=== PATIENT | female | born 1975 | race Caucasian/White ===

== ENCOUNTER 2021-04-30 18:47 | Emergency (ER) | payer SELFPAY ==
[~2021-04-30] VITALS: Ht 170.2 cm; Wt 68.0 kg
[2021-04-30] MEDS ORDERED: DIPHENHYDRAMINE HCL INJ 50 MG/ML VIAL ONE (20:14)
[2021-04-30] MEDS ORDERED: SODIUM CHLORIDE 0.9% 500ML 500 ML ONE (20:14)
[2021-04-30] MEDS ORDERED: DEXAMETHASONE SOD PHOS INJ 4 MG/ML VIAL ONE (20:14)
[2021-04-30] MEDS ORDERED: METOCLOPRAMIDE HCL 10 MG/2ML VIAL ONE (20:14)
[2021-04-30] MEDS ORDERED: DIPHENHYDRAMINE HCL INJ 50 MG/ML VIAL IV ONE (20:15)
[2021-04-30] MEDS ORDERED: METOCLOPRAMIDE HCL 10 MG/2ML VIAL IV ONE (20:15)
[2021-04-30] MEDS ORDERED: DEXAMETHASONE SOD PHOS 10 MG/1 ML VIAL IV ONE (20:15)
[2021-04-30] MEDS ORDERED: SODIUM CHLORIDE 0.9% 1000ML 1,000 ML IV SCH (20:15)
[2021-04-30] MEDS ORDERED: FIORICET 50-301 EACH PO (22:18)
[2021-04-30] MEDS ORDERED: ONDANSETRON ODT4 MG PO (22:28)
== END 2021-04-30 22:53 | disposition home or self-care (01) ==
LOC: FSED 18:55
DX: G43.909 Migraine, unspecified, not intractable, without status migrainosus (principal); R11.0 Nausea; F17.210 Nicotine dependence, cigarettes, uncomplicated
CPT/HCPCS: 80053; 81003; 85025; 99283; J1100; J1200; J2765; J7040